=== PATIENT | male | born 1940 | race Caucasian/White ===

== ENCOUNTER → 2024-11-22 11:15 | Outpatient (REF) | payer BC, SELFPAY ==
[2024-11-22 16:39] LABS: Urine Character Clear (Clear)
[2024-11-22 16:47] LABS: Urine Squamous Cell 0-2 /LPF (Few); Urine White Cell 0-2 /HPF (0-5)
== END ==
LOC: CLAB 11:15
PROVIDERS: ATTENDING PHYSICIAN Specialist
DX: N39.0 Urinary tract infection, site not specified (principal)
CPT/HCPCS: 81003; 81015; 87086

== ENCOUNTER → 2024-12-03 10:13 | Outpatient (REF) | payer OTHER, SELFPAY | LOC: RAD 10:13 | PROVIDERS: ATTENDING PHYSICIAN Specialist | DX: R31.29 Other microscopic hematuria (principal) | CPT/HCPCS: 74176 ==

== ENCOUNTER → 2025-03-27 07:22 | Outpatient (REF) | payer OTHER, SELFPAY | LOC: PAVMRI 07:22 | PROVIDERS: ATTENDING PHYSICIAN Specialist; FAMILY PHYSICIAN Family Medicine | DX: D41.00 Neoplasm of uncertain behavior of unspecified kidney (principal) | CPT/HCPCS: 74183; A9575 ==